=== PATIENT | female | born 2005 | race Caucasian/White ===

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

== ENCOUNTER 2024-06-03 19:42 | Emergency (ER) | payer OTHER, SELFPAY ==
[2024-06-03 19:43] VITALS: BP 147/95; PULSE 103; RESP 18; TEMP 36.5; O2SAT 100; BMI 20.5
--- NOTE | 2024-06-03 20:02 | EKG12_ITS ---
Test Reason : DYSRHYTHMIA Blood Pressure : */* mmHG Vent. Rate : 104 BPM Atrial Rate : 104 BPM P-R Int : 148 ms QRS Dur : 74 ms QT Int : 334 ms P-R-T Axes : 83 66 53 degrees QTcB Int : 439 ms Sinus tachycardia Possible Left atrial enlargement Septal infarct , age undetermined Abnormal ECG Confirmed by WIL CABRERA, REYNALDO ([id number]), writer editor SHUBHAM KENNEDY ([id number]) on 06/04/2024 8:14:36 AM Referred By: Confirmed By: REYNALDO DE LA TORRE MD
--- NOTE | 2024-06-03 20:04 | EDS_ITS ---
HPI History of Present Illness Chief Complaint: Abd Pain Detail of Chief Complaint: It is not chest pain it is left lower lateral rib or chest pain. Informant: patient and parent Onset/Context/Timing Onset: Days Activity at onset: gradual Timing: Intermittent Quality: Positive for Dull Current Severity: Mild (2 out of 10 discomfort.) Maximum Severity: Mild Worsened By: Nothing Relieved By: Nothing Associated Symptoms: Negative for Nausea, Vomiting, Diaphoresis, Dyspnea, Cough, Fever, Lightheadedness, Acid Reflux or Palpitations Narrative Narrative: 19-year-old female mostly past medical history. Says she does have anxiety was no treated for it. Complaining of left lower lateral chest discomfort. Says been intermittent last several days worse at night. Describes it as mild 2 out of 10 discomfort. Denies any nausea vomiting or diarrhea. Denies any fever or chills. Denies any shortness of breath. Denies any trauma to her chest or abdomen. Denies any abdominal pain. No dysuria. Normal bowel movements. No back pain. No travel surgery immobilization. No leg pain or swelling. She is on control was never had a DVT or PE. Denies exertional dyspnea or exertional pain. No hemoptysis. It is not pleuritic. Prior Similar Symptoms: No Recent Illness/Hospitalization: No CVD Risk Factors: Negative for Hypertension, Diabetes or Hypercholesterolemia PE Risk Factors: Negative for Recent Travel/Surgery, Recent Immobilization, Prior DVT or PE, Cancer or OCP + Smoking + >/=35 TAD Risk Factors: Negative for Marfan's Syndrome PFSH PFSH Medical History no medical history no medical history Home Medications ?Medication ?Instructions ?Recorded ?Last Taken ?Type multivitamin (Daily Multi-Vitamin 1 tab PO DAILY 06/03/24 Unknown History tablet) norgestimate 0.25 mg-ethinyl 1 tab PO DAILY 06/03/24 Unknown History estradiol 35 mcg tablet (Cesia) Allergy/AdvReac Type Severity Reaction Status Date / Time azithromycin (From Zithromax) Allergy Mild Hives Verified 06/03/24 19:46 Seasonal Allergies: Uncoded Allergy Mild Other Verified 06/03/24 19:46 Social History Smoking Status: Never smoker ROS ROS ED ROS Narrative Denies recent illness other than mild URI a week ago which resolved. Constitutional Constitutional ED: Denies chills or fever(s) ENT ENT ED: Reports ear pain Cardiovascular Cardiovascular: Reports as per HPI and chest pain; Denies palpitations or racing heartbeat Respiratory/Chest Respiratory/Chest: Denies cough, dyspnea or dyspnea on exertion Gastrointestinal Gastrointestinal: Denies abdominal pain, constipation, diarrhea, melena, nausea or vomiting Genitourinary Genitourinary ED: Denies dysuria or hematuria Musculoskeletal Musculoskeletal: Denies arthralgias or back pain Integumentary Denies abscess or Abrasions Neurologic Neurologic: Denies headache(s) Psychiatric Psychiatric: Reports anxiety Endocrine Endocrinology: Denies cold intolerance Hematologic/Lymphatic Hematologic/Lymphatic: Denies easy bleeding Allergic/Immunologic Allergic/Immunologic ED: Denies mouth swelling, tongue swelling or urticaria EXAM Physical Exam Narrative Exam Narrative: Well-appearing 19-year-old female. Vital signs are stable afebrile. Pulse ox 100% on room air no signs hypoxia. Sitting upright in bed. No distress. Dad is at bedside. Patient is anxious. H EENT exam unremarkable. Moist mucous membranes. Neck nontender no JVD. No lymphadenopathy. Lungs clear to auscultation bilaterally. Heart regular rhythm rate about 100 no murmur. Chest wall and ribs completely nontender. There is no reproducible pain. She describes discomfort in her left lower lateral rib cage. There is no crepitanc e. No subcu air. No bruising or rash. The skin and chest wall appear normal. Abdomen is soft, nontender, nondistended normal bowel sounds no peritoneal signs. There is absolutely no reproducible abdominal pain. No left upper quadrant tenderness. Moving all 4 extremities. Nontender no edema or cords. Normal merchandising coordinator strength. Normal dorsi plantarflexion. Back nontender. Neurologically she is awake and alert. Answering questions following commands. No focal motor deficits. Const Vital Signs: 06/03/24 19:43 Temperature 97.7 F L Temperature Source Oral Pulse Rate 103 H Respiratory Rate 18 Blood Pressure 147/95 H Blood Pressure Mean 112 Pulse Ox 100 Positive well nourished and well developed; Negative for obese, cachectic, contractures or unkempt General Appearance ED: well developed and NAD; Negative for unkempt, cachectic, contractures or pallor Nutritional Appearance: Negative for cachectic or obese HEENT Reports moist mucous membranes normocephalic and atraumatic; Negative for trauma or tenderness Eyes EOMs intact bilaterally Neck no lymphadenopathy, supple and no JVD Chest Wall inspection of chest normal and palpation of chest normal Chest: Negative for tenderness Resp normal respiratory effort and clear to auscultation bilaterally Effort and Inspection: Negative for respiratory distress Auscultation: Negative for rales, rhonchi, wheezes or diminished lung sounds Cardio regular rate, regular rhythm, S1 normal heart sound, S2 normal heart sound and no murmurs Rate: Negative for bradycardia or tachycardic Peripheral Pulses: pulses 2+ throughout GI normal to inspection, nondistended, normoactive bowel sounds, soft to palpation, non-tender, non-distended and no masses Back/Spine no CVA tenderness and no thoracic nor lumbar tenderness Extremity normal to inspection General Extremety ED: Negative for edema, pulses abnormal or tenderness General Extremity: Negative for edema or pulses abnormal Neuro oriented x3 and CN's II-XII intact bilaterally Sensorium / Orientation: awake, alert, oriented to person, oriented to place and oriented to time; Negative for confused or lethargic Motor Exam: strength 5/5 throughout Psych mental status grossly normal Appearance: Negative for unkempt Attitude: No agitated Mood & Affect: anxious; Negative for depressed or tearful Skin no rashes or lesions noted and no wounds General Skin Exam: Negative for jaundice or pallor Rashes: No rashes noted Trauma: Negative for abrasion, laceration or puncture MDM MDM MDM Narrative Medical decision making narrative: 19-year-old female with atypical nonreproducible left lower dull chest discomfort. Benign exam other than anxiety. Chest and EKG will be obtained. I do not think lab work will help us other than a D-dimer due to to her history of being on control pills. Her abdomen is completely benign. I do not think she needs any abdominal imaging. This may all be from anxiety. She did want some for anxiety she was given 1/2 mg IV of Ativan. Repeat exam and 9 PM. Patient is doing well. Her anxiety is improved with the Ativan. Repeat exam is unchanged. Abdomen specifically left upper quadrant generally nontender. I went over test results with both her and her father. They were unremarkable. D-dimer is negative. Ecchymosis secondary to anxiety. Should be discharged home. History & Record Review Discussion w/independent historian: Patient and Family Additional record(s) reviewed:: Prior inpatient record, Prior outpatient record and Prior ED visit Lab Data Attestation: I reviewed the patient's lab results. Lab results narrative: D-dimer is 0.36 and normal. Labs: Laboratory Results - last 24 hr 06/03/24 20:02 D-Dimer Quant (PE/DVT) 0.36 Radiography Chest X-Ray - ED: 2 View, Read by ED Physician, Normal, Heart, Lungs, Mediastinum, Bony Structures and No Acute Disease Diagnostic Testing: Clinical Impression(s) from Imaging Studies Chest X-Ray 06/03/24 20:25 IMPRESSION: No radiographic evidence of acute cardiopulmonary disease. Electronically Signed: Ney Mckeon, DO at 20:49 EST , Chest x-ray, 2 views, AP and lateral, interpreted by myself shows no acute abnormality. Normal cardiac silhouette. Normal lung rinaldi bilaterally. No pneumothorax. No infiltrate. No bony abnormalities. Rhythm Strip Rhythm Strip: Sinus Tach Rate: 104 Ectopy: None EKG Initial EKG: Attestation: I personally reviewed and interpreted this EKG as follows: Interpretation: No Acute Injury Pattern and Sinus Tachycardia Comments: Sinus tachycardia rate of 104. No signs of MS or ischemia. No dysrhythmia. No S1Q3T3. Discharge Plan Triage Chief Complaint: Abd Pain ED Provider: Jesse Daily Dx/Rx/DC Orders Clinical Impression: Atypical chest pain, Anxiety Instructions: ED Anxiety Reaction, ED Chest Pain, Uncertain Cause Prescriptions: No Action norgestimate-ethinyl estradiol [Cesia] 0.25-35 mg-mcg tablet 1 tab PO DAILY multivitamin [Daily Multi-Vitamin] Tablet 1 tab PO DAILY Primary Care Provider: Yaritza Santos Referrals: Matthew Rodriguez MD [Med Staff - [employer] [facility]] - 3-5 Days if not improving Activity Restrictions/Additional Instructions: Tylenol and/or Motrin for any discomfort. Your EKG, labs and chest x-ray were normal tonight. Follow-up with your doctor if not improving. Print Language: Syriac Disposition Disposition: Home, Self Care
--- NOTE | 2024-06-03 20:25 | RAD_ITS ---
EXAM: XR CHEST, 2 VIEWS CLINICAL INDICATION: left lateral lower cp TECHNIQUE: Frontal and lateral views of the chest. COMPARISON: No relevant prior studies available. FINDINGS: LUNGS AND PLEURAL SPACES: No significant abnormality. No consolidation or edema. No pneumothorax. No effusion. HEART: No significant abnormality. Cardiac silhouette not enlarged. MEDIASTINUM: Central airways and mediastinal contour are unremarkable. BONES/JOINTS: No significant abnormality. No acute fracture. SOFT TISSUES: No significant abnormality. RAD/Chest PA and Lateral IMPRESSION: No radiographic evidence of acute cardiopulmonary disease. Electronically Signed: Ney Mckeon DO at 20:49 EST ,
[2024-06-03] MEDS: LORazepam 2 MG/ML Syringe 0.5 MG IV (20:37)
[2024-06-03 20:57] LABS: D-Dimer Quantitative (DVT/PE) 0.36 FEU/ug/m (0.27-0.49)
[2024-06-03 21:26] VITALS: BP 136/60; PULSE 100; RESP 18; TEMP 36.6; O2SAT 98
== END 2024-06-03 21:27 | disposition home or self-care (01) ==
PROVIDERS: Emergency Provider Emergency Medicine; PCP Pediatrics; Visit Provider Emergency Medicine
DX: R07.89 Other chest pain (principal); F41.9 Anxiety disorder, unspecified
CPT/HCPCS: 71046; 85379; 93005; 96374; 99282; A4216